=== PATIENT | female | born 1940 | race Caucasian/White ===

== ENCOUNTER 2025-02-12 03:25 | Inpatient (IN) | payer MEDICARE, OTHER, SELFPAY ==
[2025-02-11 18:14] VITALS: BP 123/103
[2025-02-11 18:39] LABS: % Basophils 0.3 % (0-2); % Eosinophils 0.1 % (0-6); % Immature Granulocytes 0.5 % (0-0.5); % Lymphocytes 3.3 % (20.5-51.1); % Monocytes 4.7 % (1.7-9.3); % Neutrophils 91.1 % (42.2-75.2); Absolute Immature Granulocytes 0.1 10^3/uL (0-0.05); Absolute Lymphocytes 0.4 10^3/uL (1.2-3.4); Absolute Monocytes 0.6 10^3/uL (0.1-0.6); Absolute Neutrophils 10.9 10^3/uL (1.4-6.5); Hematocrit 35.1 % (37.0-47.0); Hemoglobin 12.2 g/dL (12.0-16.0); Mean Corp Hgb Conc. 34.8 g/dL (33.0-37.0); Mean Corpuscular Hgb 34.5 pg (27.0-31.0); Mean Corpuscular Volume 99.2 fL (81.0-99.0); Mean Platelet Volume 10.3 fL (7.4-10.4); Nucleated Red Blood Cells % 0 %; Platelet Count 232 10^3/uL (130-400); Red Blood Cell Count 3.54 10^6/uL (4.20-5.40); Red Cell Dist. Width 12.5 % (11.5-14.5); White Blood Cell Count 11.9 10^3/uL (4.8-10.8)
[2025-02-11 18:51] LABS: ALT (SGPT) 19 U/L (0-35); AST (SGOT) 31 U/L (14-36); Alkaline Phosphatase 85 U/L (38-126); Blood Urea Nitrogen 31 mg/dl (7-17); Calcium 9.7 mg/dl (8.4-10.2); Carbon Dioxide 18 mmol/L (22-30); Chloride 101 mmol/L (98-107); Glucose 123 mg/dl (70-99); Potassium 4.5 mmol/L (3.5-5.1); Sodium 130 mmol/L (135-145); Total Bilirubin 0.5 mg/dl (0.2-1.3); Total Protein 6.7 g/dl (6.3-8.2); eGFR 29.57
[2025-02-11 23:00] VITALS: BP 114/68
[2025-02-11 23:01] VITALS: BMI 30.7
--- NOTE | 2025-02-11 23:33 | ED.GENMED ---
History of Present Illness
General
Chief Complaint: Change in Mental Status
Source: patient and family
Exam Limitations: none
Time Seen by Provider: 02/11/25 23:23
History of Present Illness
History of Present Illness:
See MDM
Past History
Past History
ED Past Medical History: Other (cervical/lumbar DDD, DVT/PE)
ED Past Surgical History: Orthopedic
Social History
Tobacco: Non-smoker
Alcohol: None
Personal:
Living: with family
Phy Exam
Physical Exam
Physical Exam:
See MDM
Course
Orders/Labs/Results
Orders:
Orders
02/11/25 18:20
Complete Blood Count/With Diff Urgent
02/11/25 18:21
Comprehensive Metabolic Panel Urgent
02/11/25 23:32
Urinalysis Reflex To Culture Urgent
Date Specimen was Collected: 02/12/25
Time Specimen was Collected: 00:25
0.9% Sodium Chloride 1000 ml [Nss] 1,000 ml IV BOLUS
02/12/25
CT Abd/pel Without Iv Or Oral Urgent
Reason For Exam: R flank pain
02/12/25 00:26
Urine Microscopic Reflex Cult Urgent
Urine Culture Urgent
KITTY Source: U
Specimen Description:
Date Specimen was Collected: 02/12/25
Time Specimen was Collected: 00:25
02/12/25 00:46
EKG [Electrocardiogram (*1)] Stat
Reason for Study: Atrial Fibrillation
EKG- Treatment ONCE
02/12/25 01:01
Adenosine [Adenocard] 6 mg IV NOW STA
02/12/25 01:08
Adenosine [Adenocard] 12 mg .ROUTE .STK-MED ONE
02/12/25 01:12
Adenosine [Adenocard] 12 mg IV NOW STA
Diltiazem HCl [Cardizem] 18 mg IV NOW STA
02/12/25 01:24
EKG [Electrocardiogram (*1)] Stat
Reason for Study: Atrial Fibrillation
02/12/25 01:25
EKG- Treatment ONCE
02/12/25 01:28
CefTRIAXone [Rocephin] 1,000 mg IV NOW STA
Abnormal Lab Results
02/11/25 02/11/25 02/12/25
18:20 18:21 00:26
WBC 11.9 H 10^3/uL
(4.8-10.8)
RBC 3.54 L 10^6/uL
(4.20-5.40)
Hct 35.1 L %
(37.0-47.0)
MCV 99.2 H fL
(81.0-99.0)
MCH 34.5 H pg
(27.0-31.0)
Abs Immat Gran (auto) 0.1 H 10^3/uL
(0-0.05)
Absolute Neuts (auto) 10.9 H 10^3/uL
(1.4-6.5)
Absolute Lymphs (auto) 0.4 L 10^3/uL
(1.2-3.4)
Neutrophils % 91.1 H %
(42.2-75.2)
Lymphocytes % 3.3 L %
(20.5-51.1)
Sodium 130 L mmol/L
(135-145)
Carbon Dioxide 18 L mmol/L
(22-30)
BUN 31 H mg/dl
(7-17)
Creatinine 1.7 H mg/dL
(0.6-1.0)
Glucose 123 H mg/dl
(70-99)
Ur Occult Blood Reflex 4+ A
(Negative)
Leukocyte Esterase Rfl 3+ A
(Negative)
Urine RBC 11-15 A /HPF
(0-2)
Urine WBC (Reflex) 90-100 A /HPF
(0-5)
Urine Bacteria (Reflex) Many A
(Negative)
Urine Albumin (Reflex) 3+ A
(Neg - Trace)
02/11/25 18:20
02/11/25 18:21
Vital Signs
Initial and Last Documented VS:
Initial Vital Signs
Temp Pulse Resp BP Pulse Ox
98.9 F 115 16 123/103 96
02/11/25 18:14 02/11/25 18:14 02/11/25 18:14 02/11/25 18:14 02/11/25 18:14
Last Documented Vital Signs
Temp Pulse Resp BP Pulse Ox
98.8 F 170 17 147/103 97
02/11/25 23:00 02/12/25 01:15 02/11/25 23:00 02/12/25 01:15 02/11/25 23:35
MDM/Problems Addressed
Differential Diagnosis Includes:
Note:
CHIEF COMPLAINT(S)
Urinary tract infection and dehydration.
HISTORY OF PRESENT ILLNESS
The patient is an 84-year-old female with a history of Alzheimers dementia, who presents with a suspected urinary tract infection (UTI) and possible dehydration. According to a family member, the patient recently completed a course of antibiotics
for a UTI but continues to report dysuria. She experienced worsening confusion, difficulty ambulating, and an episode where she was found in a state of disarray, with clothes on backwards and unable to rise from the toilet. There is a concern about
dehydration as she has been sleeping excessively and has had reduced oral intake. Recent blood work revealed an increase in kidney enzymes, with serum creatinine reported to be 1.7 mg/dL, up from a baseline of approximately 1.1-1.2 mg/dL. Although
jaundice was suspected during a recent doctor�s visit, the family reported no current signs of jaundice. The patient has reported abdominal and back pain, attributed to arthritis according to the family. She has no history of abdominal surgery.
ADDITIONAL HISTORY OBTAINED FROM SOURCES OTHER THAN THE PATIENT
According to a family member, the patient has been living independently but requires assistance due to recent increased confusion and weakness. The family noted she was found wearing her clothes backwards and struggled with mobility. They expressed
concern about her risk for falls and subsequent inability to manage daily activities.
SOCIAL DETERMINANTS AFFECTING HEALTH
Per the family, the patient lives independently, with a relative who works two jobs. Due to recent decline, the family has had to assist with mobility and transport to medical appointments. There is a noted risk of fall due to gait instability and
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
REVIEW OF SYSTEMS
- Constitutional: Increased need for sleep, decreased oral intake.
- Gastrointestinal: Abdominal pain.
- Genitourinary: Dysuria.
PHYSICAL EXAM
General: Weak and frail
HEENT: protecting airway. Dry mucous membranes
Neck: appears supple
CV: No evidence of cyanosis
Resp: No accessory muscle use
Abd: Non-distended. Mild right lower quadrant tenderness
Extremities: No deformities. Distal legs neurovascularly intact
Neuro: alert
Psych: Normal affect
Skin: Intact
- Nursing notes reviewed and vital signs reviewed.
- General: Appears slightly dehydrated.
PLAN
- Administer IV fluids to address dehydration.
- Obtain urinalysis to evaluate for a urinary tract infection.
- Conduct a CT scan to assess the abdomen and spine for any underlying issues contributing to the patients abdominal and back pain.
- Consider admission for observation and further management due to potential falls risk and ongoing issues with mobility and confusion.
- Monitor kidney function closely in light of recent blood work suggesting increased creatinine.
DIFFERENTIAL DIAGNOSIS
The Differential Diagnosis includes, in no particular order and is not limited to:
1. Urinary tract infection
2. Dehydration
3. Acute renal impairment
4. Medication side effects
5. Electrolyte imbalance
6. Alzheimers dementia exacerbation
7. Urinary retention
8. Hypotensive episodes
9. Orthostatic hypotension
10. Spinal pathology (e.g., arthritis-related degenerative changes)
Note:
CARE-UPDATE
02/12/25 - :01
The patient experienced an episode of supraventricular tachycardia after going to the bathroom. An EKG confirmed the diagnosis, and the plan is to administer adenosine to attempt to reset the heart rhythm. Despite the tachycardia, the patient
reported feeling asymptomatic, although this is often not the case with elevated heart rates. There is a consideration that missing her regular medications or mild dehydration might have contributed to the episode. The team will monitor her response
to the adenosine. If recurrent episodes occur, further evaluation by a auto dealer may be necessary. The patient also mentioned leg pain upon touch, though its deemed unrelated to the current cardiac issue.
CARE-UPDATE
02/12/25:12
Patient experienced SVT and received adenosine treatment, initially with 6 mg followed by 12 mg, which seemed to break the episode. Uncertainty remains regarding an underlying rhythm of atrial fibrillation. Patient continues to exhibit a
tachyarrhythmia; will proceed with administration of a dose of Cardizem.
CARE-UPDATE
02/12/25 - :29
Administered ceftriaxone for treatment of urinary tract infection. Plan to admit patient for further observation and management due to concerns regarding AFIB. Will place on Cardizem drip
EKG
My independent EKG interpretation is:
- Rhythm: Atrial Fibrillation
- Heart Rate: 127 beats per minute
- [place]: Normal
- Abnormalities: No ST elevation myocardial infarction (no STEMI)
Disposition:
SUMMARY OF ENCOUNTER
The patient, an 84-year-old female with a history of Alzheimers dementia, presented to the emergency department with symptoms suggestive of a urinary tract infection (UTI) and dehydration. The decision was made to administer intravenous antibiotics
due to persistent UTI symptoms despite recent antibiotic therapy. Additionally, during evaluation, the patient was found to have new onset atrial fibrillation, which required further investigation and management.
MEDICATION RECONCILIATION
The patient was started on IV ceftriaxone for the treatment of the suspected urinary tract infection. IV Cardizem was administered to manage the atrial fibrillation.
MEDICAL DECISION MAKING
1. Number & Complexity of Problems:
- Chronic conditions affecting care: Alzheimers dementia.
- Differential diagnoses included urinary tract infection, dehydration, acute renal impairment, electrolyte imbalance, and new onset atrial fibrillation.
2. Data Reviewed:
- Category 1: Labs indicating increased serum creatinine were reviewed. An EKG confirmed atrial fibrillation.
3. Risk: Admission for observation and further management was considered due to the potential complexity and risk associated with the patients atrial fibrillation, dehydration, and ongoing issues with mobility and confusion. Social determinants,
such as the patients independent living situation and risk of falls, were taken into account.
DISPOSITION
The patient will be admitted for further evaluation and management by the hospitalist team.
PATHOLOGIES TO CONSIDER
- Acute coronary syndrome due to new onset atrial fibrillation.
- Sepsis due to persistent UTI symptoms and possible dehydration.
- Stroke secondary to atrial fibrillation.
- Electrolyte imbalance due to recent blood work findings and dehydration concerns.
*Pulse Oximetry
SaO2: 97
Oxygen Mode of Delivery: Room air
Patient hypoxic: no
*Critical Care Note
Total Time (30-74mins, 75-104mins- exclusive of procedures): 33 min
comment:
The high probability of a clinically significant, sudden or life threatening deterioration of the cardiovascular system(s) required my full and direct attention, intervention and personal management. The aggregate critical care time was 33 minutes.
This time is in addition to time spent performing reported procedures but includes the following:
[x] Data Review and interpretation
[x] Patient assessment and monitoring of vital signs
[x] Documentation
[x] Medication orders and management
ED Attending Note
-
Portions of this chart may have been created with voice recognition software.� Occasional wrong word or��sound alike� substitutions may have occurred due to the inherent limitations of voice recognition software.
Discharge Plan
Departure
Patient Disposition: Admit
Date of Disposition: 02/12/25
Time of Disposition: 01:31
Admit to: Telemetry
Presentation/result/management discussed w/ accepting MD/DO: Hospitalist
Discharge Problem:
Acute UTI, Atrial fibrillation, new onset
Prescriptions:
No Action
prednisone 10 MG tablet
10 mg PO .TAPER Qty: 45 0RF
Rx Instructions:
Take 50mg daily x3days, 40mg daily x3days, 30mg daily x3days, 20mg daily x3days, 10mg daily x3days
Referrals:
IRENE MAGALLANES MD [Family Provider, Family Practice]
Interventions
Interventions:
*Risk Screen - Suicide Last Done: 02/11/25 18:17
*General Assessment Last Done: 02/11/25 23:03
*Neglect/Abuse Screening Last Done: 02/11/25 18:17
*ED- Fall Risk Assessment Last Done: 02/11/25 23:02
*ED COVID-19 Vaccine History Last Done: 02/11/25 23:02
ED- Neurological Assessment Last Done: 02/11/25 23:04
Discharge Date and Time
Print Language: MAURITANIAN
[2025-02-12] VITALS (18 sets, daily range): BP systolic 92–150; BP diastolic 47–103; BMI 29.5
[2025-02-12] MEDS: NSS 1000 IV (00:18)
[2025-02-12 00:52] LABS: Urine Albumin 3+ (Neg - Trace); Urine Bilirubin Negative (Negative); Urine Character Cloudy (Clear); Urine Color Yellow; Urine Glucose Negative (Negative); Urine Ketone Negative (Negative); Urine Leukocyte 3+ (Negative); Urine Nitrite Negative (Negative); Urine Occult Blood 4+ (Negative); Urine Urobilinogen Negative (Neg - 1+)
[2025-02-12] MEDS: ADENOCARD 6 MG IV (01:03)
[2025-02-12 01:11] LABS: Urine White Cell 90-100 /HPF (0-5)
[2025-02-12 01:12] LABS: Urine Bacteria Many (Negative); Urine Granular Cast 0-2 /LPF (0)
[2025-02-12] MEDS: ADENOCARD 12 MG IV (01:13)
[2025-02-12] MEDS: CARDIZEM 18 MG IV (01:15)
[2025-02-12] MEDS: CARDIZEM 125 IV (01:43)
[2025-02-12] MEDS: ROCEPHIN 1000 MG IV (01:44)
--- NOTE | 2025-02-12 02:22 | HPS.HSE ---
Family Physician
-
Family Physician: IRENE MAGALLANES MD
Chief Complaint
-
Altered mental status
History of Present Illness
This is a 83-year-old female who has past medical history significant for hypothyroid, hypertension, DVT on warfarin, chronic pain presenting to the emergency department with altered mental status.
Patient was diagnosed with a urinary tract infection 2 weeks ago. She was placed on oral antibiotics. She initially did well but approximately several days after completing the antibiotic she started having symptoms of UTI again. She reports
burning sensation. She denies fevers or chills. She was pending a repeat evaluation by PMD when she became even more altered. Daughter found her sitting on the commode confused and unable to get up and walk. She was found to be tachycardic and
she was brought to the emergency department. They did not notice any falls.
On arrival in the emergency department she was found to be in SVT to the 180s. She was given adenosine and there was no effect. She was started on Cardizem drip and was clearly in atrial fibrillation.
Current blood pressure was 130s over 60s, heart rate in the 120s she is afebrile and oxygen saturation is 98% on room air. She has leukocytosis to 11.9, hemoglobin and platelets were normal. Sodium was 130 the rest of the electrolytes notable for
a bicarb of 18. Creatinine is slightly elevated at 1.7 from a baseline of 1.2. UA is markedly positive. ECG with atrial fibrillation at a rate of 127.
Medical History
Past Medical History
Past Medical History: Reports Dementia, HTN and Hypothyroidism
Additional Past Medical History:
History of DVT
Past Surgical History: Reports Other
Social History
Tobacco: Non-smoker
Alcohol: None
Drug: None
Living: With Family
Employment: Retired
Family History
Family History: Not pertinent
Allergies / Home Medications
Allergies reflects when Allergies were last updated in [facility].
Home Medications with original date entered in [facility]
Allergy/Medication List:
Allergies
Allergy/AdvReac Type Severity Reaction Status Date / Time
acetaminophen (From Percocet) Allergy Unknown Verified 03/19/16 13:38
amoxicillin Allergy Unknown Verified 03/19/16 13:38
cephalexin Allergy Unknown Verified 03/19/16 13:38
codeine phosphate (From Allergy Unknown Verified 03/19/16 13:38
Tylenol-Codeine #3)
hydrocodone bitartrate (From Allergy Unknown Verified 03/19/16 13:38
Vicodin)
latex Allergy Unknown Verified 03/19/16 13:38
morphine Allergy Unknown Verified 03/19/16 13:38
nitrofurantoin Allergy Unknown Verified 03/19/16 13:38
oxycodone HCl (From Percocet) Allergy Unknown Verified 03/19/16 13:38
sulfamethoxazole (From Allergy Unknown Verified 03/19/16 13:38
Bactrim)
tramadol Allergy Unknown Verified 03/19/16 13:38
trimethoprim (From Bactrim) Allergy Unknown Verified 03/19/16 13:38
Home Medications
prednisone 10 mg tablet 10 mg PO .TAPER #45 tabs 03/19/16
Review of Systems
-
History Source: Patient and Family
Constitutional: Reports No Symptoms
EENT: Reports No Symptoms
Respiratory: Reports No Symptoms
Cardiac: Reports No Symptoms
Abdomen/GI: Reports No Symptoms
: Reports Dysuria
Musculoskeletal: Reports No Symptoms
Skin: Reports No Symptoms
Neurological: Reports Weakness
Endocrine: Reports No Symptoms
Hematologic/Lymphatic: Reports No Symptoms
Psych: Reports No Symptoms
Physical Exam
Vital Signs
Vital Signs
Temp Pulse Resp BP Pulse Ox
98.8 F 127 15 147/103 100
02/11/25 23:00 02/12/25 01:45 02/12/25 01:45 02/12/25 01:16 02/12/25 01:45
Physical Exam
General: Well Developed and Well Nourished
HEENT: NormoCephalic, Moist mucous membranes and Atraumatic
Respiratory: Clear
Cardiac: S1/S2, Irregular Rhythm and Tachycardia; No Murmur or Rub
GI: Soft, Non Tender, Non Distended and Normal Bowel Sounds; No Organomegaly
Rectal: Deferred by Provider
Musculoskeletal: No Clubbing, No Cyanosis and No Edema
Skin: No Rash
Neuro: Alert and Nonfocal/grossly intact; No Facial Droop or Tremors
Laboratory Results
-
02/11/25 18:20
02/11/25 18:21
Laboratory Results
Total Bilirubin 0.5 mg/dl (0.2-1.3) 02/11/25 18:21
AST 31 U/L (14-36) 02/11/25 18:21
ALT 19 U/L (0-35) 02/11/25 18:21
Alkaline Phosphatase 85 U/L (38-126) 02/11/25 18:21
Data Reviewed
-
Medical Tests (Nuc Med, Echo, EKG etc): Image Personally Visualized and interpreted
Lab Data: Labs Reviewed by me
Old Records: Reviewed
Impression/Plan
-
IMPRESSION:
83-year-old female presenting with weakness, altered mental status and uncontrolled atrial fibrillation in the setting of persistent urinary tract infection. She is afebrile and remains hemodynamically stable. She has mild leukocytosis. UA is
still markedly positive despite treatment with oral antibiotics in the outpatient. She has continued to have dysuria just prior to coming to the ED. No history of kidney stones or urinary retention.
PLAN:
Atrial fibrillation -new onset atrial fibrillation with rapid ventricular response
- Admit to IMU
- Patient on Cardizem drip, continue drip for now
- Continue patient's metoprolol 100 mg p.o. daily
- Hold enalapril for now
- Already on anticoagulation with Coumadin, unknown compliance, checking INR, consider alternate mode of anticoagulation but will continue Coumadin for now
- echo, bnp in am
- cardiology consult
Urinary tract infection -recurrence of failure for oral antibiotics,
- Urine culture sent
- IV ceftriaxone
-CTAP to rule out stone or urinary retention
- Status post 1 L normal saline, monitor for now without additional fluid
Altered mental status -suspect secondary to UTI and possible uncontrolled A-fib
- Treatment of those as above
LOY -LOY on CKD, suspect secondary to infection, rule out hypovolemia.
- Holding up
- Status post 1 L normal saline, continue gentle hydration for now
- Monitor for retention on CT scan
- Monitor ins and outs
- Avoid nephrotoxin
Continue levothyroxine, check TSH
DVT prophylaxis, on warfarin
CODE STATUS�full code
[2025-02-12] MEDS: SYNTHROID 75 MCG PO (05:04)
[2025-02-12] MEDS: LR 1000 IV (05:04)
[2025-02-12 05:09] LABS: Hematocrit 37.8 % (37.0-47.0); Hemoglobin 13.4 g/dL (12.0-16.0); Mean Corp Hgb Conc. 35.4 g/dL (33.0-37.0); Mean Corpuscular Hgb 35.5 pg (27.0-31.0); Mean Corpuscular Volume 100.3 fL (81.0-99.0); Mean Platelet Volume 10.6 fL (7.4-10.4); Platelet Count 199 10^3/uL (130-400); Red Blood Cell Count 3.77 10^6/uL (4.20-5.40); Red Cell Dist. Width 12.6 % (11.5-14.5); White Blood Cell Count 10.8 10^3/uL (4.8-10.8)
--- NOTE | 2025-02-12 05:19 | PTCARENOTE ---
Received pt from ED at 0420. Pt aaox1, forgetful/confused. Daughter at bedside. Cardizem gtt increased to 10mg/hr, running through R AC. Afib on monitor, HR 100-110. VSS. Temp slightly elevated at 99.8. LR @75ml/hr running through R forearm IV. Call
diaz and belongings within reach. Care ongoing.
[2025-02-12 05:23] LABS: Blood Urea Nitrogen 35 mg/dl (7-17); Calcium 9.5 mg/dl (8.4-10.2); Carbon Dioxide 18 mmol/L (22-30); Chloride 106 mmol/L (98-107); Estimated Creatinine Clearance 25 ml/min; Glucose 100 mg/dl (70-99); HDL Cholesterol 62 mg/dl; LDL Cholesterol, Calculated 109 mg/dl; Magnesium 1.9 mg/dl (1.6-2.3); Potassium 4.6 mmol/L (3.5-5.1); Sodium 135 mmol/L (135-145); Total Cholesterol 198 mg/dl (50-199); Triglyceride 137 mg/dl (10-149); Very Low Density Lipoprotein 27 mg/dl (0-30); eGFR 34.36
[2025-02-12 05:28] LABS: INR 1.01; PT 13.8 Sec (11.4-14.6)
[2025-02-12 05:45] LABS: NT-proBNP 4790 pg/ml; Troponin I 0.056 ng/ml
[2025-02-12 06:10] LABS: TSH Reflex To Free T4 0.57 uIU/ml (0.47-4.68)
[2025-02-12] MEDS: TYLENOL 650 MG PO (08:07)
[2025-02-12] MEDS: PROTONIX 20 MG PO (08:07)
[2025-02-12] MEDS: CYMBALTA DELAYED RELEASE 30 MG PO (08:07)
[2025-02-12] MEDS: TOPROL XL 100 MG PO (08:07)
--- NOTE | 2025-02-12 08:20 | CON.CAR ---
Addendum entered and electronically signed by ROSE MARIE Asencio 02/13/25 15:24:
Med list below in my consult was incorrect as med rec not yet done:
-prescribed cardiac meds prior to admit include: metoprolol XL 100 mg PO daily, enalapril 10 mg PO daily, and warfarin dosing as prescribed.
Addendum entered and electronically signed by Edward Mays MD 02/12/25 10:01:
84 yo female with PMH of DVT on warfarin, HTN, CKD3b medical noncompliance. Admitted with UTI, and altered mental status. We are consulted for A fib with RVR,new. She denies palps. Exam with irregular rhythm, no murmurs, no edema. Cr 1.5. Tele: A
fib 90s-100s.
New A fib with RVR. In setting of UTI. Will focus on rate control, and will consider DCCV after UTI treated as outpatient. Continue diltiazem drip, which requires monitoring on tele. Add back Toprol XL 100mg daily.
CHADS2-VASC = 4. Warfarin listed on home meds, but INR 1.0. Family thinks not taking. Given Cr 1.5 with some variation around this baseline, and also med compliance issues, xarelto 15mg daily will likely be best OAC.
Original Note:
Consultation
Consultation Request
Date/Time Consultation Requested: 02/12/25417
Date/Time Consultation Performed: 02/12/25820
Requesting Provider: Dr. Becerra
Performing Provider: Cielo TROTTER for Dr. Mays
Reason for Consultation: AFIB
Medical History
-
Chief Complaint: altered MS
History of Present Illness:
84 y/o female (saw Dr. Rawls remotely for cardiac care) with hypothyroidism, hypertension, hx PE on warfarin, SVT, possible dementia per chart, and CKD who is here for altered MS. She was recently treated for a UTI as OP. Symptoms recurred after
abx course completed. She lives at home with a daughter, but daughter goes to work so she is alone at times during the day and sleeps a lot and does not eat or drink much. Meds are put out for patient, but family suspects she has not been taking
them. She is here because yesterday while she was on the toilet her daughter went to check on her and she was confused and weak. She went to her PCP, who recommended ER. She is being treated with IV abx for UTI. She also received IV fluids for
suspected dehydration. Her daughter thinks she looks better today, and patient in good spirits, but still somewhat confused. We are consulted since SVT was noted in ER and adenosine was given. However, AFIB was noted and she is on diltiazem drip.
Rates are controlled. She is and was not symptomatic with this. She was in SR on arrival on telemetry.
Past Medical History
Past Medical History: HTN, Hypercholesterolemia and Hypothyroidism
Social History
Tobacco: Non-Smoker
Living: With Family
Family History
Family History: Reviewed & Not Pertinent
Allergies / Home Medications
Allergy/AdvReac Type Severity Reaction Status Date / Time
acetaminophen (From Percocet) Allergy Unknown Verified 03/19/16 13:38
amoxicillin Allergy Unknown Verified 03/19/16 13:38
cephalexin Allergy Unknown Verified 03/19/16 13:38
codeine phosphate (From Allergy Unknown Verified 03/19/16 13:38
Tylenol-Codeine #3)
hydrocodone bitartrate (From Allergy Unknown Verified 03/19/16 13:38
Vicodin)
latex Allergy Unknown Verified 03/19/16 13:38
morphine Allergy Unknown Verified 03/19/16 13:38
nitrofurantoin Allergy Unknown Verified 03/19/16 13:38
oxycodone HCl (From Percocet) Allergy Unknown Verified 03/19/16 13:38
sulfamethoxazole (From Allergy Unknown Verified 03/19/16 13:38
Bactrim)
tramadol Allergy Unknown Verified 03/19/16 13:38
trimethoprim (From Bactrim) Allergy Unknown Verified 03/19/16 13:38
�Medication �Instructions �Recorded �Confirmed �Type
prednisone 10 mg tablet 10 mg PO .TAPER #45 tabs 03/19/16 Rx
Review of Systems
-
History Source: Patient
All other systems: Negative unless noted
Constitutional: Other (weakness)
: Dysuria
Neurological: Other (confusion)
Physical Exam
Vital Signs
Temp Pulse Resp BP Pulse Ox
99.6 F 104 24 123/77 96
02/12/25 07:08 02/12/25 06:00 02/12/25 06:00 02/12/25 06:00 02/12/25 05:26
Lab Results
02/12/25 04:57
02/12/25 04:57
Troponin I 0.056 ng/ml H* 02/12/25 04:57
Jkw-I-Mmzcbeshhhi Pept 4790 pg/ml 02/12/25 04:57
Physical Exam
General: Well Developed, Well Nourished and No Apparent Distress
HEENT: Normocephalic and Anicteric
Respiratory: Clear and Non Labored Respirations
Cardiac: Irregular Rhythm
Skin: Warm and Dry
Neuro: Awake, Alert and Other (some confusion and forgetfulness)
Psych: Calm
Impression / Plan
-
UTI:
-on IV abx
-management per primary
AFIB with RVR- new diagnosis:
-not symptomatic
-continue IV diltiazem for now, which requires intensive monitoring- wean as able now that she is back on metoprolol 100 mg daily (there has been some med non-compliance at home)
-she is prescribed warfarin as OP for hx PE, but has not been taking it consistently. INR is 1.01. DOAC will be safer/better choice for patient with this in mind. Will have CM ty meds. Would consider Xarelto here, since it is once daily
(compliance) and since her creatinine is around 1.5 (sometimes above or below it appears), so dosing may not be as clear for Eliquis.
-echo today
-TSH WNL
SVT:
-known hx
-continue metoprolol
Weakness:
-UTI being treated, but likely needs PT/OT/CM consults- defer to primary team
Hx PE:
-previously prescribed warfarin- discussion on OAC as above
-no leg pain now, but was reported this admit- consider u/s, but defer to primary
HTN:
-monitor with med adjustment
Abnormal renal function:
-patient with CKD, but I am not sure of recent baseline
-follow renal function
-improved with fluids
Abnormal troponin:
-suspect acute, non-ischemic myocardial injury with likely LOY, as well as tachycardia
-obtaining echo
Data Reviewed
-
EKG: Tracing Personally Visualized and interpreted (AFIB with RVR [address] Scan: Report Reviewed by me (There is urinary bladder wall thickening with surrounding stranding which likely represents cystitis. Additionally there is asymmetric right perinephric stranding which may represent ascending infection. Recommend
correlation with urinalysis.)
Medical Tests (Nuc Med, Echo etc): Other (echo ordered)
Labs: Labs Reviewed by me
--- NOTE | 2025-02-12 12:05 | W.PN.HOSP.TC ---
Today's Communication/Plan
-
See plan
Assessment / Plan
Assessment / Plan
Impression:
Urinary tract infection
Atrial fibrillation with rapid ventricular response, new diagnosis
Known history of SVT
Abnormal cardiac markers
� Troponin elevation likely secondary to nonischemic myocardial injury in the settings of rapid A-fib
� Elevated pro CHF BNP
Acute kidney injury.
Hypovolemic hyponatremia
Toxic metabolic encephalopathy secondary to above.
Other conditions:
Pulmonary embolism
Anticoagulation with Coumadin
Hypertension
Hypothyroidism by history.
Plan
Urinary tract infection.
No evidence of sepsis. Hemodynamically stable, afebrile, although with altered mental status upon presentation which is likely multifactorial.
Noted mild leukocytosis
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
CT scan with no evidence of urinary tract obstruction, findings consistent with cystitis and right perinephric stranding likely ascending infection.
Continue ceftriaxone
Follow blood cultures
Follow urine cultures
Acute kidney injury.
Hypovolemic hyponatremia
Improving with IV hydration.
Atrial fibrillation with rapid ventricular response. New diagnosis.
Has known history of SVT.
Continue Cardizem drip
Reinstate Toprol XL.
CV score 4. Had been on anticoagulation with Coumadin for prior history of PE, although presents with subtherapeutic INR.
Case management request for NOAC coverage and pricing
Abnormal cardiac markers including troponin and CHF BNP.
Echo pending
Chest pain-free
Trend troponin
Altered mental status
Currently improved and back to baseline
Suspect toxic metabolic encephalopathy secondary to acute kidney injury, ongoing UTI.
Exam with no focal neurologic findings.
Check CT scan of the head
Monitor closely
Hypothyroidism by history
Confirm outpatient dosing if any Levothyroid replacement but
TSH within normal limits
Prior history of PE.
Currently on Coumadin with subtherapeutic INR.
Consideration switching to factor Xa inhibitor
Update lower extremity Doppler
Physical therapy assessment and discharge planning
Full code
Anticipated Discharge: > 48 hours
Subjective/Interval History
-
Date of Service: February 12, 2025
Objective Data
-
Labs:
Laboratory Results
02/12/25
04:57
WBC 10.8
Hgb 13.4
Hct 37.8
Plt Count 199
PT 13.8
INR 1.01
Sodium 135
Potassium 4.6
Chloride 106
Carbon Dioxide 18 L
BUN 35 H
Creatinine 1.5 H
Glucose 100 H
Calcium 9.5
Vital Signs:
Vital Signs
Temp Pulse Resp BP Pulse Ox
99.6 F 104 24 123/77 96
02/12/25 07:08 02/12/25 06:00 02/12/25 06:00 02/12/25 06:00 02/12/25 05:26
I&O
02/11/25 02/12/25 02/13/25
06:59 06:59 06:59
Intake Total 1000 / 1000
Balance 1000 / 1000
Physical Exam
-
General: Well Developed and No Apparent Distress
HEENT: Normocephalic, Atraumatic and Moist Mucous Membranes
Respiratory: Clear to Auscultation
Cardiac: Regular Rhythm and S1/S2; Negative Murmur, Rub or Gallop
GI: Soft, Nontender, Nondistended and Normal Bowel Sounds; Negative Organomegaly
Rectal: Deferred by Provider
Musculoskeletal: No Clubbing, No Cyanosis and No Edema
Skin: Negative Rash
Neuro: Nonfocal/Grossly Intact
[2025-02-12 14:49] LABS: Troponin I 0.065 ng/ml
--- NOTE | 2025-02-12 15:03 | PTCARENOTE ---
Addendum entered by Vicki Cedeño RN 02/12/25 15:06:
With bilateral hearing aides. VS stable,afebrile.
Addendum entered by Vicki Cedeño RN 02/12/25 15:03:
Patient out of bed to chair and bathroom. Supervision assistance x1 and rolling walker. Patient alert and oriented but has some trouble with word recall and short term memory. Using call diaz appropriately. Hard of hearing with ai
Original Note:
Patient out of bed to commode
--- NOTE | 2025-02-12 16:31 | CM ---
Patient with Dx UTI, new Afib w RVR. Room air. Receiving IVF, IV Abx. Per nurse confused, forgetful. PT/OT Evals pending.
Met with patient and daughter Katja;
the patient resides with her daughter Gloria in a 2 story house with 2 CHRIS & first floor setup.
The patient has been confused/forgetful at home and is left alone during the day while Gloria is at work.
She washes herself at the bathroom sink and ambulates with a shuffling gait within the home by 'wall surfing'.
Patient refuse to use RW or cane, & she last fell 2 years ago.
The patient is not supervised for medications and doesn't take her meds consistently.
DME - [facility], [facility]
VN - can't remember agency
SNF - [facility] in [place] - can't remember name
PCP - Christie Galvan
Pharmacy - [facility] in [facility]
CM Consult: Saritha and Xarelto
Checked through Ambulatory Orders- $47/month - cost for each
Much discussion with Katja about cost, initially saying her sister Gloria may not approve.
CM attempted to reach Gloria 3x- not answering phone, and she is out of town gol[place]ame today per Katja.
Katja finally agreed to cost and accepted Eliquis Free Month card.
Info relayed to Dr Monteiro & Cielo Davenport.
Plan follow up after seen by PT/OT.
--- NOTE | 2025-02-12 17:13 | W.PN.UPDATE ---
Addendum entered and electronically signed by ROSE MARIE Asencio 02/12/25 17:26:
Discussed with daughter who is agreeable to Xarelto. Reviewed with nursing. CM to check pricing on this tomorrow.
Original Note:
Update Note
Progress Note Update
CM still working out pricing of Xarelto- I will start Xarelto 15 mg PO QPM for now and stop warfarin, as this is a better choice for patient- reassess tomorrow with CM, patient, family.
[2025-02-12] MEDS: XARELTO 15 MG PO (17:46)
--- NOTE | 2025-02-12 18:10 | PTCARENOTE ---
Jacobo matthews d/c this afternoon. Patient remains in afib with HR 70-90's. Xaralto started this evening. Patient pleasantly confused. Oriented to self but can't state the year she was born or her age. INC of urine. Patient had a temperature of
100.5 this AM and tylenol given. Afebrile the rest of the day.
--- NOTE | 2025-02-12 23:36 | PTCARENOTE ---
Pt noted to be in NSR at beginning of shift. EKG done to confirm.
[2025-02-13] VITALS (15 sets, daily range): BP systolic 107–152; BP diastolic 54–86; PULSE 91–95; O2SAT 100; BMI 27.4
[2025-02-13] MEDS: ROCEPHIN 1000 MG IV (01:05)
[2025-02-13 04:35] LABS: Troponin I 0.031 ng/ml
[2025-02-13 04:36] LABS: Blood Urea Nitrogen 29 mg/dl (7-17); Calcium 9.3 mg/dl (8.4-10.2); Carbon Dioxide 18 mmol/L (22-30); Chloride 111 mmol/L (98-107); Estimated Creatinine Clearance 28 ml/min; Glucose 100 mg/dl (70-99); Potassium 3.9 mmol/L (3.5-5.1); Sodium 136 mmol/L (135-145); eGFR 37.33
[2025-02-13] MEDS: SYNTHROID 75 MCG PO (05:24)
--- NOTE | 2025-02-13 09:20 | W.PN.CD ---
Today's Communication / Plan
-
Patient is currently in sinus rhythm
Continue with current medical therapy for atrial fibrillation including Xarelto 15 mg a day and metoprolol.
Echocardiogram shows normal left ventricular function
No additional recommendations.
Call if additional assistance required
Impression / Plan
-
UTI:
-on IV abx
-management per primary
AFIB with RVR- new diagnosis:
-not symptomatic
- Now on Xarelto 15 mg a day
- Currently in sinus rhythm
- continue metoprolol
SVT:
-known hx
-continue metoprolol
Hx PE:
- Warfarin discontinued now on Xarelto
HTN:
-monitor with med adjustment
Abnormal renal function:
-patient with CKD, but I am not sure of recent baseline
-follow renal function
-improved with fluids
Abnormal troponin:
- acute, non-ischemic myocardial injury with likely LOY, as well as tachycardia
- Echo 02/12/2025 normal left ventricular function 60 to 65% ejection fraction aortic sclerosis without stenosis. Mild to moderate TR. Normal PA pressure
Physical Exam
Vital Signs/Labs
Vital Signs
Temp Pulse Resp BP Pulse Ox
97.1 F 105 21 152/77 96
02/13/25 07:55 02/13/25 04:00 02/13/25 04:00 02/13/25 04:00 02/13/25 04:00
02/12/25 02/13/25 02/14/25
06:59 06:59 06:59
Actual Weight 68.5 kg 68 kg
02/12/25 04:57
02/13/25 04:00
PT 13.8 Sec (11.4-14.6) 02/12/25 04:57
INR 1.01 02/12/25 04:57
Magnesium 1.9 mg/dl (1.6-2.3) 02/12/25 04:57
Triglycerides 137 mg/dl (10-149) 02/12/25 04:57
LDL Cholesterol, Calc 109 mg/dl 02/12/25 04:57
VLDL Cholesterol, Calc 27 mg/dl (0-30) 02/12/25 04:57
HDL Cholesterol 62 mg/dl 02/12/25 04:57
02/12/25
04:57
Hhn-M-Ljhvigkkwdv Pept 4790
LAB Results
02/12/25 02/12/25 02/13/25
04:57 14:11 04:00
Troponin I 0.056 H* 0.065 H* 0.031
Physical Exam
Constitutional: No acute distress
Cardiovascular: Rhythm & rate is regular
Respiratory: Lungs clear to auscul. and Wheeze Absent
GI: Soft
Neuro/Psych: Alert
Data Reviewed
-
Date of Service: February 13, 2025
Medical Decision Making: Reviewed Test Results
Echo: Report Reviewed by me
Medical Tests (PFT, Pathology etc): Report Reviewed by me
Labs: Labs Reviewed by me
[2025-02-13] MEDS: TOPROL XL 100 MG PO (09:43)
[2025-02-13] MEDS: PROTONIX 20 MG PO (09:43)
[2025-02-13] MEDS: CYMBALTA DELAYED RELEASE 30 MG PO (09:43)
--- NOTE | 2025-02-13 11:20 | W.PN.HOSP.TC ---
Today's Communication/Plan
-
Given altered mental status upon presentation, abnormal CT scan findings suggestive subacute left basal ganglia infarction and will proceed with additional imaging with MRI.
Has been on anticoagulation, currently transition to Xarelto.
Physical therapy assessment
IV ceftriaxone pending final urine cultures.
PT assessment suggesting need for rehab placement and close supervision.
Assessment / Plan
Assessment / Plan
Impression:
Urinary tract infection
Atrial fibrillation with rapid ventricular response, new diagnosis
Known history of SVT
Abnormal cardiac markers
� Troponin elevation likely secondary to nonischemic myocardial injury in the settings of rapid A-fib
� Elevated pro CHF BNP
Acute kidney injury.
Hypovolemic hyponatremia
Toxic metabolic encephalopathy secondary to above.
Other conditions:
Pulmonary embolism
Anticoagulation with Coumadin
CKD stage IIIa
Hypertension
Hypothyroidism by history.
Plan
Urinary tract infection.
No evidence of sepsis. Hemodynamically stable, afebrile, although with altered mental status upon presentation which is likely multifactorial.
Noted mild leukocytosis
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
CT scan with no evidence of urinary tract obstruction, findings consistent with cystitis and right perinephric stranding likely ascending infection.
Urine culture with E. coli pending sensitivity
Continue ceftriaxone
Acute kidney injury.
Suspect CKD stage IIIa with baseline creatinine 1.2�1.4
Hypovolemic hyponatremia
Improving with IV hydration. Creatinine 1.7�1.4
Atrial fibrillation with rapid ventricular response. New diagnosis.
Has known history of SVT.
Back to normal sinus rhythm
Off IV Cardizem
Reinstate Toprol XL.
CV score 4. Had been on anticoagulation with Coumadin for prior history of PE, although presents with subtherapeutic INR.
Transitioned of Coumadin to Xarelto
Abnormal cardiac markers including troponin and CHF BNP.
Echo pending
Chest pain-free
Echocardiogram with normal biventricular function and no evidence of regional wall motion abnormality.
Altered mental status
Suspect underlying dementia
CT scan of the head with 7 mm hypodensity within the anterior left basal ganglia which may represent subacute infarction.
Will order additional imaging with MRI
Currently improved and back to baseline
Suspect toxic metabolic encephalopathy secondary to acute kidney injury, ongoing UTI.
Exam with no focal neurologic findings.
Hypothyroidism by history
Confirm outpatient dosing if any Levothyroid replacement but
TSH within normal limits
Macrocytosis
Check B12 level
Prior history of PE.
Currently on Coumadin with subtherapeutic INR.
Lower extremity Doppler negative for DVT
Transitioned off Coumadin to Xarelto
Physical therapy assessment and discharge planning
Full code
Anticipated Discharge: 24 - 48 hours
Subjective/Interval History
-
Date of Service: February 13, 2025
Objective Data
-
Labs:
Laboratory Results
02/13/25
04:00
Sodium 136
Potassium 3.9
Chloride 111 H
Carbon Dioxide 18 L
BUN 29 H
Creatinine 1.4 H
Glucose 100 H
Calcium 9.3
Vital Signs:
Vital Signs
Temp Pulse Resp BP Pulse Ox
97.1 F 91 16 121/67 96
02/13/25 07:55 02/13/25 10:47 02/13/25 10:47 02/13/25 10:47 02/13/25 09:36
I&O
02/12/25 02/13/25 02/14/25
06:59 06:59 06:59
Intake Total 999 / 9995 / 173
Balance 999 / 999 1734 / 173
Physical Exam
-
General: Well Developed and No Apparent Distress
HEENT: Normocephalic, Atraumatic and Moist Mucous Membranes
Respiratory: Clear to Auscultation
Cardiac: Regular Rhythm and S1/S2; Negative Murmur, Rub or Gallop
GI: Soft, Nontender, Nondistended and Normal Bowel Sounds; Negative Organomegaly
Rectal: Deferred by Provider
Musculoskeletal: No Clubbing, No Cyanosis and No Edema
Skin: Negative Rash
Neuro: Nonfocal/Grossly Intact
[2025-02-13 15:00] LABS: Vitamin B12 > 1000 pg/ml (239-931)
--- NOTE | 2025-02-13 15:16 | CM ---
Patient with Dx UTI, new Afib w RVR, CT Head yesterday: possible subacute infarction. MRI Brain pending. Room air. Receiving IVF, IV Abx. Per nurse; forgetful. PT/OT recommends skilled rehab.
Spoke with patient's daughter Katja; discussed patient's current mobility as per PT/OT. Daughter agrees with short term SNF for rehab and would like her mother to go to [facility] again. She says her sister JAXON Castro, who is out of town, would
agree also.
Spoke with Iesha Buck; provided info re; clinical status, and referral placed.
Plan follow up with [facility] for acceptance.
--- NOTE | 2025-02-13 16:39 | PTCARENOTE ---
OOB x1-2 hr returned to bed d/t back pain. Refused med intervention. AOx2 forgetful, alarms engaged. SR 80s on tele BP 107/60. 95% on RAIR. Awaiting MRI. Daughter phani this RN aware that she had TIA in the past (15 years) ago - unconfirmed.
Awaiting MRI.
[2025-02-13] MEDS: XARELTO 15 MG PO (17:39)
[2025-02-13] MEDS: TYLENOL 650 MG PO (19:40)
[2025-02-14] VITALS (10 sets, daily range): BP systolic 102–145; BP diastolic 51–87; BMI 27.8
--- NOTE | 2025-02-14 00:22 | PTCARENOTE ---
pt oriented to self, pleasantly confused. bed alarm in use. daughter visited earlier in the evening with the pt. nsr on monitor. satting 98% on RA. call light in reach. assessment as documented.
[2025-02-14] MEDS: ROCEPHIN 1000 MG IV ×2 (02:50→23:27)
[2025-02-14] MEDS: STERILE WATER FOR INJECTION 10 ML IV ×3 (02:50→23:27)
[2025-02-14 05:44] LABS: Blood Urea Nitrogen 27 mg/dl (7-17); Calcium 9.9 mg/dl (8.4-10.2); Carbon Dioxide 24 mmol/L (22-30); Chloride 112 mmol/L (98-107); Estimated Creatinine Clearance 28 ml/min; Glucose 103 mg/dl (70-99); Potassium 4.1 mmol/L (3.5-5.1); Sodium 140 mmol/L (135-145); eGFR 37.33
[2025-02-14] MEDS: SYNTHROID 75 MCG PO (05:50)
[2025-02-14] MEDS: CYMBALTA DELAYED RELEASE 30 MG PO (08:55)
[2025-02-14] MEDS: TOPROL XL 100 MG PO (08:55)
[2025-02-14] MEDS: PROTONIX 20 MG PO (08:55)
--- NOTE | 2025-02-14 10:08 | CM ---
Patient with Dx UTI, new Afib w RVR. MRI Brain today. Room air. Receiving IV Abx. Per nurse; confused, forgetful. PT/OT; requires assist of 2, recommend skilled rehab.
Spoke with Cielo, [facility]; they are able to accept the patient tomorrow, and 1pm ambulance transport time is okay. CM can contact weekend Nursing Animal Husbandman by calling the [employer] @[phone]. The [phone], fax [phone].
Spoke with patient's daughter Katja; she agrees with discharge tomorrow to [facility] by ambulance at 1pm. Daughter will be here later today to meet with CM to sign IMM.
Ambulance forms given to Natalio, [employer] to arrange ambulance.
Plan [facility] tomorrow 1pm by ambulance.
--- NOTE | 2025-02-14 12:34 | W.PN.HOSP.TC ---
Today's Communication/Plan
-
Transition to oral antibiotics upon discharge in a.m.
Continue supportive care
Physical therapy
Plan is to discharge to group home facility rehab
Assessment / Plan
Assessment / Plan
Impression:
Urinary tract infection
Atrial fibrillation with rapid ventricular response, new diagnosis
Known history of SVT
Abnormal cardiac markers
� Troponin elevation likely secondary to nonischemic myocardial injury in the settings of rapid A-fib
� Elevated pro CHF BNP
Acute kidney injury.
Hypovolemic hyponatremia
Toxic metabolic encephalopathy secondary to above.
Other conditions:
Pulmonary embolism
Anticoagulation with Coumadin
CKD stage IIIa
Hypertension
Hypothyroidism by history.
Plan
Urinary tract infection.
No evidence of sepsis. Hemodynamically stable, afebrile, although with altered mental status upon presentation which is likely multifactorial.
Noted mild leukocytosis
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
CT scan with no evidence of urinary tract obstruction, findings consistent with cystitis and right perinephric stranding likely ascending infection.
Urine culture with E. coli sensitive to cephalosporins. Plan is to transition to cephalexin 500 p.o. twice daily upon discharge to complete total of 5 days of therapy
Continue ceftriaxone while in the hospital
Acute kidney injury.
Suspect CKD stage IIIa with baseline creatinine 1.2�1.4
Hypovolemic hyponatremia
Improving with IV hydration. Creatinine 1.7�1.4
Atrial fibrillation with rapid ventricular response. New diagnosis.
Has known history of SVT.
Back to normal sinus rhythm
Off IV Cardizem
Reinstate Toprol XL.
CV score 4. Had been on anticoagulation with Coumadin for prior history of PE, although presents with subtherapeutic INR.
Transitioned of Coumadin to Xarelto
Abnormal cardiac markers including troponin and CHF BNP.
Echo pending
Chest pain-free
Echocardiogram with normal biventricular function and no evidence of regional wall motion abnormality.
Altered mental status
Suspect underlying dementia
CT scan of the head with 7 mm hypodensity within the anterior left basal ganglia which may represent subacute infarction.
MRI of the brain No acute intracranial abnormality noted.
Mild atrophy with sequelae of moderate small vessel ischemic disease. The abnormality seen on prior CT correlates with a prior small infarction in the anterior left basal ganglia.
Currently improved and back to baseline
Suspect toxic metabolic encephalopathy secondary to acute kidney injury, ongoing UTI.
Exam remains with no focal neurologic findings.
Hypothyroidism by history
Confirm outpatient dosing if any Levothyroid replacement
TSH within normal limits
Macrocytosis
B12 within normal limit
Prior history of PE.
Currently on Coumadin with subtherapeutic INR.
Lower extremity Doppler negative for DVT
Transitioned off Coumadin to Xarelto
Physical therapy assessment and discharge planning
Full code
Anticipated Discharge: Within 24 hours
Subjective/Interval History
-
Date of Service: February 14, 2025
Objective Data
-
Labs:
Laboratory Results
02/14/25
05:12
Sodium 140
Potassium 4.1
Chloride 112 H
Carbon Dioxide 24
BUN 27 H
Creatinine 1.4 H
Glucose 103 H
Calcium 9.9
Vital Signs:
Vital Signs
Temp Pulse Resp BP Pulse Ox
97.7 F 89 23 141/78 98
02/14/25 11:13 02/14/25 10:00 02/14/25 10:00 02/14/25 08:46 02/14/25 00:14
I&O
02/13/25 02/14/25 02/15/25
06:59 06:59 06:59
Intake Total 1735 / 1735
Balance 1735 / 1735
Physical Exam
-
General: Well Developed and No Apparent Distress
HEENT: Normocephalic, Atraumatic and Moist Mucous Membranes
Respiratory: Clear to Auscultation
Cardiac: Regular Rhythm and S1/S2; Negative Murmur, Rub or Gallop
GI: Soft, Nontender, Nondistended and Normal Bowel Sounds; Negative Organomegaly
Rectal: Deferred by Provider
Musculoskeletal: No Clubbing, No Cyanosis and No Edema
Skin: Negative Rash
Neuro: Nonfocal/Grossly Intact
[2025-02-14] MEDS: XARELTO 15 MG PO (17:35)
[2025-02-15] VITALS (7 sets, daily range): BP systolic 115–141; BP diastolic 62–99
--- NOTE | 2025-02-15 01:04 | PTCARENOTE ---
Pt oriented to self and place, disoriented to time. Pt pleasant, cooperative, but forgetful. IV abx given per OCT. Pt denies complaints at this time. Call diaz within reach. Bed alarm in place for pt safety. Care ongoing.
[2025-02-15] MEDS: SYNTHROID 75 MCG PO (05:02)
[2025-02-15] MEDS: TOPROL XL 100 MG PO (08:34)
[2025-02-15] MEDS: PROTONIX 20 MG PO (08:34)
[2025-02-15] MEDS: CYMBALTA DELAYED RELEASE 30 MG PO (08:34)
--- NOTE | 2025-02-15 13:31 | PTCARENOTE ---
assumed care of pt after morning report and assessment charted. Pt is alert and oriented x 2 but definitely unsure and confused at times. She can tell me her needs, but does not tell me when she is incontinent. Complete care and hygiene provided. Pt
able to feed self breakfast. NSR on monitor. Lungs clear throughout, 96% on room air. Daughter Katja at bedside and aware of plan of discharge to [facility]. Report called to facility. Transport arrived and pt discharged
--- NOTE | 2025-02-16 13:36 | W.DCSUMMARY ---
Discharge Summary
Discharge Data
Date of Admission: 02/12/25
Date of Discharge: 02/15/25
-
Pending Results: No
Hospital Course
Discharging Physician : Dr Guille Bryan
Disposition : SNF rehab
Primary care physician : Dr Christie Galvan
Principal Discharge diagnosis :
Escherichia coli urinary tract infection
Atrial fibrillation with rapid ventricular rate
Elevated troponin
Acute kidney injury
Toxic metabolic encephalopathy
Chronic Discharge diagnosis :
Pulmonary embolism
Critical disease stage IIIa
Essential hypertension
Hypothyroidism
Hospital Course :
Patient is 84-year-old female with above-mentioned past medical history was brought to ER for altered mental state. Patient was diagnosed for urinary tract infection 2 weeks back and was placed on oral antibiotics. Patient continued to have
symptoms of dysuria/urgency. The patient was brought in as daughter found patient confused. In ER patient was noted to be in SVT with heart rate in 180s. Patient was started on Cardizem drip and was admitted for further care. Patient had
resolution of SVT with Cardizem drip and was transition back to home regimen of Toprol. Patient was on Coumadin for anticoagulation preadmission which was switched to Xarelto after discussion with family. Patient also was noted to having ongoing
urinary tract infection and required IV antibiotic course. CT abdomen pelvis was done which ruled out any complicating factors. Urine culture grew E. coli which was sensitive to cephalosporin, patient was discharged on oral cephalosporin course.
Associated with this patient had some acute kidney injury which improved post IV hydration. Patient confusion was also resolved with treatment of infection. CT head/MRI brain was done as part of workup and did not show any other abnormality. Post
stabilization patient was discharged to senior care facility for rehab.
Important imaging findings :
None
Procedure findings :
None
Discharge Plan
-
Patient Disposition: Assisted/SNF
Discharge Diagnosis/Procedures: New onset of atrial fibrillation
Urinary tract infection
Dementia.
Old CVA.
Ambulatory dysfunction
Condition: Good
Diet: Regular
Activity: As tolerated
Driving Restrictions: No driving
Bathing Restrictions: OK to Shower
Activity Restrictions/Additional Instructions:
Take Tab Omnicef for 3 more days
Referrals:
CHRISTIE GALVAN MD [Family Provider, [facility]] - in one week
Prescriptions:
New
acetaminophen 325 mg Tablet
650 mg PO Q6HPRN PRN (Reason: mild pain/ fever>100.5F) Qty: 30 0RF
metoprolol succinate 100 mg Tablet Extended Release 24 Hr
100 mg PO DAILY Qty: 30 0RF
pantoprazole 20 mg Tablet,Delayed Release (Dr/Ec)
20 mg PO DAILY Qty: 30 0RF
levothyroxine 75 mcg Tablet
75 mcg PO DAILY @ 0600 Qty: 30 0RF
duloxetine 30 mg Capsule,Delayed Release(Dr/Ec)
30 mg PO DAILY Qty: 30 0RF
Xarelto 15 mg Tablet
15 mg PO QPM Qty: 30 0RF
cefdinir 300 mg capsule
300 mg PO BID 3 Days Qty: 6 0RF
Discontinued
prednisone 10 MG tablet
10 mg PO .TAPER Qty: 45 0RF
Rx Instructions:
Take 50mg daily x3days, 40mg daily x3days, 30mg daily x3days, 20mg daily x3days, 10mg daily x3days
Discharge Orders:
Discharge Patient (As Directed); Ordered 02/15/25
Ordered By: Guille Bryan
Discharge Date and Time
Discharge Date/Time: 02/15/25 13:18
Print Language: DOMINICAN
== END 2025-02-15 13:18 | DRG 682 ==
LOC: IMU 03:25
PROVIDERS: Emergency Medicine; Internal Medicine; ADMITTING PHYSICIAN Internal Medicine; ATTENDING PHYSICIAN Hospitalist; EMERGENCY PHYSICIAN Student in an Organized Health Care Education/Training Program; FAMILY PHYSICIAN Family Medicine; OTHER PHYSICIAN Internal Medicine
DX: N17.9 Acute kidney failure, unspecified (principal); G92.8 Other toxic encephalopathy; I5A Non-ischemic myocardial injury (non-traumatic); E87.1 Hypo-osmolality and hyponatremia; I47.10 Supraventricular tachycardia, unspecified; N30.90 Cystitis, unspecified without hematuria; I48.91 Unspecified atrial fibrillation; I12.9 Hypertensive chronic kidney disease with stage 1 through stage 4 chronic kidney disease, or unspecified chronic kidney disease; B96.20 Unspecified Escherichia coli [E. coli] as the cause of diseases classified elsewhere; E03.9 Hypothyroidism, unspecified; G89.29 Other chronic pain; F02.80 Dementia in other diseases classified elsewhere, unspecified severity, without behavioral disturbance, psychotic disturbance, mood disturbance, and anxiety; E86.1 Hypovolemia; G30.9 Alzheimer's disease, unspecified; E78.00 Pure hypercholesterolemia, unspecified; N18.31 Chronic kidney disease, stage 3a; D75.89 Other specified diseases of blood and blood-forming organs; Z87.440 Personal history of urinary (tract) infections; Z86.718 Personal history of other venous thrombosis and embolism; Z91.148 Patient's other noncompliance with medication regimen for other reason; Z86.711 Personal history of pulmonary embolism; Z86.73 Personal history of transient ischemic attack (TIA), and cerebral infarction without residual deficits; Z79.01 Long term (current) use of anticoagulants
CPT/HCPCS: 70450; 70553; 74176; 80048; 80053; 80061; 81003; 81015; 82607; 83735; 83880; 84443; 84484; 85025; 85027; 85610; 87086; 87088; 87186; 93005; 93306; 93970; 96365; 96366; 96375; 97163; 97167; 97530; 99291; A9575; J0153

== ENCOUNTER → 2025-02-19 11:18 | Outpatient (REF) | payer OTHER, MEDICARE, SELFPAY ==
[2025-02-19 11:38] LABS: Hematocrit 33.0 % (37.0-47.0); Hemoglobin 10.9 g/dL (12.0-16.0); Mean Corp Hgb Conc. 33.0 g/dL (33.0-37.0); Mean Corpuscular Volume 104.1 fL (81.0-99.0); Platelet Count 442 10^3/uL (130-400); Red Cell Dist. Width 12.9 % (11.5-14.5)
[2025-02-19 12:07] LABS: Blood Urea Nitrogen 25 mg/dl (7-17); Calcium 9.5 mg/dl (8.4-10.2); Carbon Dioxide 26 mmol/L (22-30); Chloride 110 mmol/L (98-107); Glucose 88 mg/dl (70-99); Potassium 4.8 mmol/L (3.5-5.1); Sodium 139 mmol/L (135-145); eGFR 40.80
== END ==
LOC: OLABP 11:18
PROVIDERS: ATTENDING PHYSICIAN Family Medicine
DX: R26.89 Other abnormalities of gait and mobility (principal); I48.0 Paroxysmal atrial fibrillation; N39.0 Urinary tract infection, site not specified; F03.90 Unspecified dementia, unspecified severity, without behavioral disturbance, psychotic disturbance, mood disturbance, and anxiety; I63.89 Other cerebral infarction
CPT/HCPCS: 36415; 80048; 85027

== ENCOUNTER → 2025-03-14 17:06 | Outpatient (REF) | payer MEDICARE, OTHER, SELFPAY ==
[2025-03-14 17:41] LABS: Hematocrit 39.2 % (37.0-47.0); Hemoglobin 12.9 g/dL (12.0-16.0); Mean Corp Hgb Conc. 32.9 g/dL (33.0-37.0); Mean Corpuscular Volume 102.6 fL (81.0-99.0); Nucleated Red Blood Cells % 0 %; Platelet Count 304 10^3/uL (130-400); Red Cell Dist. Width 12.9 % (11.5-14.5)
[2025-03-14 18:00] LABS: Blood Urea Nitrogen 17 mg/dl (7-17); Calcium 10.7 mg/dl (8.4-10.2); Carbon Dioxide 23 mmol/L (22-30); Chloride 109 mmol/L (98-107); Glucose 121 mg/dl (70-99); Potassium 4.7 mmol/L (3.5-5.1); Sodium 140 mmol/L (135-145); eGFR 40.80
== END ==
LOC: REG 17:06
PROVIDERS: FAMILY PHYSICIAN Family Medicine
DX: R05.2 Subacute cough (principal); Z68.27 Body mass index [BMI] 27.0-27.9, adult; R05.1 Acute cough
CPT/HCPCS: 36415; 71046; 80048; 85025

== ENCOUNTER 2025-07-08 04:38 | Observation (INO) | payer MEDICARE, OTHER, SELFPAY ==
[2025-07-08] VITALS (11 sets, daily range): BP systolic 107–167; BP diastolic 61–96; PULSE 81–83; O2SAT 96
[2025-07-08] MEDS: DUONEB 3 ML INH (01:53)
[2025-07-08] MEDS: TYLENOL 1000 MG PO (01:54)
[2025-07-08] MEDS: NSS 1000 IV ×2 (01:54→06:08)
[2025-07-08 01:58] LABS: Hematocrit 39.8 % (37.0-47.0); Hemoglobin 12.9 g/dL (12.0-16.0); Mean Corp Hgb Conc. 32.4 g/dL (33.0-37.0); Mean Corpuscular Volume 100.8 fL (81.0-99.0); Nucleated Red Blood Cells % 0 %; Platelet Count 261 10^3/uL (130-400); Red Cell Dist. Width 13.1 % (11.5-14.5)
[2025-07-08 02:11] LABS: COVID-19 Antigen Negative (Negative)
[2025-07-08 02:43] LABS: ALT (SGPT) < 10 U/L (0-35); AST (SGOT) 19 U/L (14-36); Albumin 4.0 g/dl (3.5-5.0); Alkaline Phosphatase 89 U/L (38-126); Blood Urea Nitrogen 21 mg/dl (7-17); Calcium 9.7 mg/dl (8.4-10.2); Carbon Dioxide 23 mmol/L (22-30); Chloride 107 mmol/L (98-107); Glucose 122 mg/dl (70-99); Potassium 4.4 mmol/L (3.5-5.1); Sodium 136 mmol/L (135-145); Total Protein 6.9 g/dl (6.3-8.2); eGFR 44.64
--- NOTE | 2025-07-08 02:55 | ED.GENMED ---
History of Present Illness
General
Chief Complaint: Fever
Source: patient, family (Daughter at bedside) and previous hospital records (Hospitalization January of this year for UTI, new onset A-fib with rapid ventricular response, toxic metabolic encephalopathy.)
Exam Limitations: dementia (Mildly poor historian related to timing of recent events.)
Time Seen by Provider: 07/08/25 01:21
Nursing documentation reviewed up to this point in time: agreed with
History of Present Illness
History of Present Illness:
The patient is an 85-year-old female, who resides at home with her daughter, presenting with fever, persistent cough, headache, and pain in the sinus region. The onset of symptoms began two days ago, with the patient describing chills and body aches
suggestive of fevers. The patient reports progressive coughing, and there is mention of a 'stuffy nose' with associated sinus discomfort. A family member notes that the patient has felt like she has a cold. Additionally, a wound on the patients hand
has been persistent for a long duration without healing, possibly exacerbated by underlying arthritis. There is no recent exposure to sick contacts as the patient stays mostly at home. The patient was last evaluated in a medical setting
approximately two weeks ago, but it was unrelated to the current symptoms, and no medications were specifically prescribed at that time except [id number] remedies.
Prior records reviewed.
Patient hospitalized January of this year with UTI symptoms persistent for at least 2 weeks prior to that hospitalization. Acute confusion and new onset A-fib with rapid ventricular response. Had been maintained on Coumadin with remote history of
DVT/PE. A-fib converted spontaneously with medications. Patient has history of mild dementia and history of sporadic compliance with medications. Coumadin was discontinued and transitioned to Xarelto which he continues.
Patient resides with one of her daughters who apparently works full-time and is out of the house for most of the day Monday through Monday. There is a agricultural services director who comes to the house from 1 to 3 PM Monday through Monday. Patient is currently
staying with her other daughter who has brought her to the ED due to acute URI symptoms. Current daughter admits that there is ongoing concern that patient is sporadically compliant with her medications. Patient apparently decides what she wants
to take on a daily basis.
There has been no recent falls.
Mildly decreased appetite over the past day or 2 but no vomiting. She did note mild nausea and route to the hospital but this is a new symptom.
Past History
Past History
ED Past Medical History: Arrthythmia (New onset A-fib with rapid ventricular response January 2025), HTN, Renal failure (Chronic kidney disease stage III), Hypothyroidism, Psychiatric (Dementia), Other (cervical/lumbar DDD, DVT/PE) and Other (UTI,
chronic pain syndrome)
ED Past Surgical History: Orthopedic
Social History
Tobacco: Non-smoker
Alcohol: None
Personal:
Living: with family
Family History
Family History: Other (Noncontributory)
Phy Exam
Physical Exam
Physical Exam:
GENERAL: 85-year-old woman appears her stated age. Awake and alert, currently oriented x 3 however struggles with timeline of most recent events over the past few days. Frequent harsh nonproductive cough is noted. Mild breathlessness when talking
in full sentences. Daughter is accompanying.
EYE: pupils equal and reactive. Mild lower lid injection bilaterally. Anicteric
NECK: Supple, nontender, no meningismus, no significant adenopathy.
ENT: posterior pharynx is without injection, mild clear to pearly postnasal drip is noted, oral mucosa is mildly dry. TM clear b/l, nares have mildly boggy turbinates with scant clear rhinorrhea.
CARDIAC: Regular rhythm, mildly tachycardic. no murmur.
LUNGS: Mild tachypnea with frequent harsh nonproductive cough. Scant, scattered end expiratory wheezing bilaterally. No rales or rhonchi.
ABDOMEN: Soft, nondistended, without focal tenderness, no r/g, no cvat. normoactive BS.
NEUROLOGICAL: Alert and oriented x3, no focal neuro deficits.
SKIN: Moderately hot to touch and dry, normal color, no rash. There is a bilobed superficial ulcer left dorsal proximal thumb as well as a smaller ulcerated lesion left lateral wrist. No drainage, no soft tissue swelling nor surrounding erythema.
These ulcerations are exquisitely tender to touch. According to daughter these ulcerations have been present for quite some time, perhaps months or longer.
MUSCULOSKELETAL: No C/C/E. peripheral pulses are full and equal b/l. Moderate tenderness to superficial ulcerated lesions left thumb and left lateral wrist, otherwise extremities are nontender.
PSYCH: Normal and appropriate interaction.
Sepsis
Sepsis Screening
Sepsis Assessment: Sepsis Ruled Out
Sepsis Screen
Sepsis Screen: Sepsis Ruled Out
Date: 07/08/25
Time: 03:00
Course
Orders/Labs/Results
Orders:
Orders
07/08/25 01:23
Urinalysis Reflex To Culture Urgent
07/08/25 01:25
Electrocardiogram (*1) Urgent
Reason for Study: Fatigue / Weakness
EKG- Treatment ONCE
07/08/25 01:43
Acetaminophen [Tylenol] 1,000 mg PO NOW STA
07/08/25 01:44
COVID-19 Antigen Urgent
Source: Nasal Swab
Complete Blood Count/With Diff Urgent
Lactic Acid Urgent
Blood Culture Q30M
KITTY Source: Blood/Venous
Specimen Description:
Blood Culture Q30M
KITTY Source: Blood/Venous
Specimen Description:
Influenza A+B Rapid Molecular Urgent
KITTY Source: Nasal Swab
Specimen Description:
Ipratropium/Albuterol Sulfate [Duoneb] 3 ml INH R NOW STA
07/08/25 01:45
0.9% Sodium Chloride 1000 ml [Nss] 1,000 ml IV 500 mls/hr
CR Chest - 2 Views Urgent
Comment:
Reason For Exam: cough, fever
07/08/25 02:20
Comprehensive Metabolic Panel Urgent
Comment: REDRAW
07/08/25 02:53
Oseltamivir Phosphate [Tamiflu] 30 mg PO NOW STA
07/08/25 04:08
Admit/Transfer Patient As Directed
Co-Sign Provider:
Level of Care: Observation services
Assign to:: Telemetry
Physician / Group: Christopher
Diagnosis: Influenza
Reason for Telemetry: Arrhythmia
Date to Stop Telemetry: 07/11/25
Time to Stop Telemetry: 11:00
PRN Pain Medication Management As Directed
May give lesser potent ordered pain med per pt: Yes
preference::
Protocol:: Medication orders for pain may be administered in a
manner that supports deferring to patient preference
when the pt is:
- Requesting an ordered lesser potent pain medication.
Least to most potent pain medications are defined
as: acetaminophen < NSAID < tramadol < opioids
(morphine, oxycodone, hydromorphone).
- Requesting a lesser dose of the same medication IF
ORDERED.
- Requesting a less intrusive route of administration
if both routes are prescribed by the provider (PO <
IV).
07/08/25 04:25
Code Status As Directed
Resuscitation Status: Full Code
07/08/25 05:30
0.9% Sodium Chloride 1000 ml [Nss] 1,000 ml IV 100 mls/hr
Acetaminophen [Tylenol] 650 mg PO Q4HPRN PRN
Albuterol [ProAIR HFA INHALER] 2 puff INH R Q4HPRN PRN
07/08/25 05:30
Activity As Directed
Activity Level: Ambulate
With Assistance
I/O [Intake/ Output] As Directed
Frequency: Per unit guidelines
Precautions As Directed
Type of Precautions: Droplet
Vital Signs As Directed
Frequency: Per unit guidelines
Oxygen Therapy [O2 Therapy] [RESP] Routine
Titrate/Wean O2 to maintain O2 sat greater than (%): 94
Ot Eval And Treat Routine
PT Consult [Pt Eval And Treat] Routine
Activity Level: Ambulate
With Assistance
07/08/25 Breakfast
Regular
At Your Request: Full Participation
Basic Metabolic Panel IN AM
Complete Blood Count/No Diff IN AM
Levothyroxine [Synthroid] 75 mcg PO DAILY @ 0600
07/08/25 08:00
Donepezil HCl [Aricept] 10 mg PO DAILY
Duloxetine Delayed Release [Cymbalta Delayed Release] 30 mg PO DAILY
Metoprolol Xl [Toprol Xl] 100 mg PO DAILY
Oseltamivir Phosphate [Tamiflu] 30 mg PO BID
Pantoprazole [Protonix] 20 mg PO DAILY
07/08/25 18:00
Rivaroxaban [Xarelto] 15 mg PO QPM
07/11/25 11:00
DC Protocol for Telemetry ONCE
Abnormal Lab Results
07/08/25 07/08/25
01:44 02:20
RBC 3.95 L 10^6/uL
(4.20-5.40)
MCV 100.8 H fL
(81.0-99.0)
MCH 32.7 H pg
(27.0-31.0)
MCHC 32.4 L g/dL
(33.0-37.0)
Absolute Lymphs (auto) 0.5 L 10^3/uL
(1.2-3.4)
Neutrophils % 84.3 H %
(42.2-75.2)
Lymphocytes % 6.9 L %
(20.5-51.1)
BUN 21 H mg/dl
(7-17)
Creatinine 1.2 H mg/dL
(0.6-1.0)
Glucose 122 H mg/dl
(70-99)
07/08/25 01:44
07/08/25 02:20
Vital Signs
Initial and Last Documented VS:
Initial Vital Signs
Temp Pulse Resp BP Pulse Ox
99.5 F 132 28 150/96 95
07/08/25 00:07 07/08/25 00:07 07/08/25 00:07 07/08/25 00:07 07/08/25 00:07
Last Documented Vital Signs
Temp Pulse Resp BP Pulse Ox
99.4 F 103 20 126/68 92
07/08/25 02:09 07/08/25 05:15 07/08/25 05:15 07/08/25 05:00 07/08/25 05:15
MDM/Problems Addressed
Differential Diagnosis Includes:
The Differential Diagnosis includes, in no particular order and is not limited to:
1. Upper Respiratory Infection
2. Viral Sinusitis
3. Chronic Rhinosinusitis
4. Herpetic Beatriz
5. Bacterial Skin Infection
6. Allergic Rhinitis
7. Impaired Healing Due to Diabetes (if applicable)
8. Community-acquired Pneumonia
9. Chronic Obstructive Pulmonary Disease Exacerbation
10. Dental Abscess
MDM/Problems Addressed:
Acute URI with acute febrile illness. Although oral temperature reportedly 99.5 �F. I suspect a much higher temperature as clinically skin is moderately hot to touch.
Concern for pneumonia, COVID URI, acute influenza, viral bronchitis.
Appears moderately fatigued and although pulse ox 95% on room air, moderate breathlessness when speaking.
Will give Tylenol for fever, initiate IV fluids will check labs and chest x-ray.
Monitor shows sinus tachycardia with occasional ectopy. Concern for potential intermittent atrial fibrillation on personnel monitor. Will check EKG and continue to monitor.
Chronic conditions affecting care: HTN, Arrhythmia, Neurological disorder and Kidney disease
*Radiology
Radiology exam reviewed: preliminary read by ED provider (Moderately rotated otherwise unremarkable. Clear lung mcdonald.)
*Pulse Oximetry
SaO2: 95
Oxygen Mode of Delivery: Room air
Patient hypoxic: no
*EKG
Interpreted by ED Provider?: Yes
Comparison EKG: no changes (Unchanged from previous February 12, 2025 save for heart rate has increased from 94 to now 104. PACs are new.)
Rate: tachycardiac
Rhythm: sinus and PAC's
[place]: normal axis
Interval: normal interval
QRS Pattern: normal QRS
Ischemia: no ischemia
*Landing Man Interpretation
Rate: tachycardiac
Interpretation: abnormal
Rhythm: sinus
*Critical Care Note
Total Time (30-74mins, 75-104mins- exclusive of procedures): Not Applicable
Update Note
Update Note:
Patient is positive for influenza A. Likely source for her URI.
Due to acute febrile illness, URI patient is markedly deconditioned, generalized weakness, as well as landing to exacerbation of her chronic dementia.
She is noted to have intermittent nausea, again I suspect related to acute influenza/URI but concern for inability to maintain adequate oral hydration and due to generalized weakness/fatigue she is at significant risk for falls and significant
debility thus will require acute hospitalization.
Will initiate Tamiflu at renal dosing, 30 mg.
Cough has improved after nebulizer treatment.
Will continue IV fluids.
Will admit to hospitalist service.
ED Attending Note
-
Portions of this chart may have been created with voice recognition software.� Occasional wrong word or��sound alike� substitutions may have occurred due to the inherent limitations of voice recognition software.
Discharge Plan
Departure
Patient Disposition: Admit
Date of Disposition: 07/08/25
Time of Disposition: 03:00
Admit to: Med/Surg
Admit to doctor: Christopher
Presentation/result/management discussed w/ accepting MD/DO: Hospitalist
Condition: Fair
Covid-19: Negative COVID-19
Discharge Problem:
Influenzal acute upper respiratory infection, Acute respiratory distress, Toxic metabolic encephalopathy
Interventions
Interventions:
*Risk Screen - Suicide Last Done: 07/08/25 00:07
*General Assessment Last Done: 07/08/25 02:09
*Neglect/Abuse Screening Last Done: 07/08/25 00:07
*ED COVID-19 Vaccine History Last Done: 07/08/25 02:37
*ED Influenza Vaccine History Last Done: 07/08/25 02:37
ED- Neurological Assessment Last Done: 07/08/25 02:40
ED- Pulmonary Assessment Last Done: 07/08/25 02:40
ED-Skin Assessment Last Done: 07/08/25 02:40
[2025-07-08] MEDS: TAMIFLU 30 MG PO ×2 (03:23→07:37)
--- NOTE | 2025-07-08 04:31 | HPS.HSE ---
Family Physician
-
Family Physician: IRENE MAGALLANES MD
Chief Complaint
-
Fever, cough
History of Present Illness
Patient is an 85y F with PMH significant for A-Fib, hypertension, hypothyroidism and prior DVT who presents to ED complaining of cough, fever, weakness and malaise. Patient states that she started with runny nose and some sinus issues about a
week ago. Has had fever / cough and some SOB for the past 2 days. She is not sure if she had her seasonal influenza vaccine yet this year. She denies any chest pain. No GI or complaints.
Medical History
Past Medical History
Past Medical History: Reports Other
Additional Past Medical History:
Hypertension
Paroxysmal Atrial Fibrillation
SVT
CKD III
CVA (by imaging)
History of PE
Hypothyroidism
Senile Dementia
Past Surgical History: Reports Other
Additional Past Surgical History:
Bilateral TKA
Mohs Surgery
Cataracts
Social History
Tobacco: Non-smoker
Alcohol: None
Drug: None
Family History
Family History: Not pertinent
Allergies / Home Medications
Allergies reflects when Allergies were last updated in [facility].
Home Medications with original date entered in [facility]
Allergy/Medication List:
Allergies
Allergy/AdvReac Type Severity Reaction Status Date / Time
acetaminophen (From Percocet) Allergy Unknown Verified 07/08/25 00:09
amoxicillin Allergy Unknown Verified 07/08/25 00:09
cephalexin Allergy Unknown Verified 07/08/25 00:09
codeine phosphate (From Allergy Unknown Verified 07/08/25 00:09
Tylenol-Codeine #3)
hydrocodone bitartrate (From Allergy Unknown Verified 07/08/25 00:09
Vicodin)
latex Allergy Unknown Verified 07/08/25 00:09
morphine Allergy Unknown Verified 07/08/25 00:09
nitrofurantoin Allergy Unknown Verified 07/08/25 00:09
oxycodone HCl (From Percocet) Allergy Unknown Verified 07/08/25 00:09
sulfamethoxazole (From Allergy Unknown Verified 07/08/25 00:09
Bactrim)
tramadol Allergy Unknown Verified 07/08/25 00:09
trimethoprim (From Bactrim) Allergy Unknown Verified 07/08/25 00:09
Home Medications
acetaminophen 325 mg tablet 650 mg (2 x 325 mg) PO Q6HPRN PRN mild pain/ fever>100.5F #30 tabs 02/14/25
duloxetine 30 mg capsule,delayed release 30 mg PO DAILY #30 caps 02/14/25
levothyroxine 75 mcg tablet 75 mcg PO DAILY @ 0600 #30 tabs 02/14/25
metoprolol succinate 100 mg tablet,extended release 24 hr 100 mg PO DAILY #30 tabs 02/14/25
pantoprazole 20 mg tablet,delayed release 20 mg PO DAILY #30 tabs 02/14/25
rivaroxaban 15 mg tablet (Xarelto) 15 mg PO QPM #30 tabs 02/14/25
donepezil 10 mg tablet 10 mg PO DAILY 07/08/25
Review of Systems
-
History Source: Patient
A 12 point ROS was completed and negative except as noted: Yes
Constitutional: Reports Fever and Fatigue; Denies Chills
EENT: Reports Sore Throat and Runny Nose
Respiratory: Reports Cough and Trouble Breathing
Cardiac: Denies Chest Pain or Palpitations
Abdomen/GI: Denies Abdominal Pain, Nausea, Vomiting or Diarrhea
: Denies Dysuria or Frequency
Musculoskeletal: Denies Joint Pain or Edema
Neurological: Denies Dizzy or Headache
Physical Exam
Vital Signs
Vital Signs
Temp Pulse Resp BP Pulse Ox
99.4 F 115 17 167/78 95
07/08/25 02:09 07/08/25 01:45 07/08/25 01:45 07/08/25 01:00 07/08/25 02:58
Physical Exam
General: Other (Pleasant 85y F in no acute distress.)
HEENT: Moist mucous membranes, PERRLA and Other (Inflamed conjunctiva bilaterally.)
Respiratory: Other (Coarse breath sounds R > L. No wheezing.)
Cardiac: S1/S2 and Tachycardia; No Murmur
GI: Soft, Non Tender, Non Distended and Normal Bowel Sounds
Musculoskeletal: No Clubbing, No Cyanosis and No Edema
Neuro: Awake and Alert
Laboratory Results
-
07/08/25 01:44
07/08/25 02:20
Laboratory Results
Lactic Acid 1.1 mmol/L (0.7-2.0) 07/08/25 01:44
Total Bilirubin 0.7 mg/dl (0.2-1.3) 07/08/25 02:20
AST 19 U/L (14-36) 07/08/25 02:20
ALT < 10 U/L (0-35) 07/08/25 02:20
Alkaline Phosphatase 89 U/L (38-126) 07/08/25 02:20
Impression/Plan
-
A/P: Patient is an 85y F with PMH significant for hypertension, hypothyroidism and CKD who presents to ED for evaluation of cough, fever and malaise.
Influenza A
- Observe overnight for further evaluation and treatment.
- Fever / cough x 2 days - begin Tamiflu.
- Albuterol MDI PRN.
- O2 support if needed.
- Follow proper precautions.
- Follow for clinical improvement.
SVT
Paroxysmal Atrial Fibrillation
- Sinus tach / SVT in the ED.
- Continue usual home metoprolol and monitor for changes.
- Continue Xarelto for stroke risk reduction.
Benign Hypertension
- Stable. Continue metoprolol.
CKD III
- Stable. Renal function is at / near known baseline.
- Renally dose Tamiflu.
Hypothyroidism
- Continue T4 replacement.
Senile Dementia
- Continue Aricept.
- Monitor for acute agitation / delirium during hospital stay.
History of PE
DVT Prophylaxis
- Continue Xarelto
Code Status: Full
[2025-07-08 06:16] LABS: Hematocrit 33.4 % (37.0-47.0); Hemoglobin 11.2 g/dL (12.0-16.0); Mean Corp Hgb Conc. 33.5 g/dL (33.0-37.0); Mean Corpuscular Volume 98.5 fL (81.0-99.0); Platelet Count 243 10^3/uL (130-400); Red Cell Dist. Width 13.1 % (11.5-14.5)
[2025-07-08 06:39] LABS: Blood Urea Nitrogen 20 mg/dl (7-17); Calcium 9.1 mg/dl (8.4-10.2); Carbon Dioxide 23 mmol/L (22-30); Chloride 109 mmol/L (98-107); Glucose 119 mg/dl (70-99); Potassium 4.0 mmol/L (3.5-5.1); Sodium 136 mmol/L (135-145); eGFR 40.55
[2025-07-08] MEDS: ARICEPT 10 MG PO (07:36)
[2025-07-08] MEDS: PROTONIX 20 MG PO (07:36)
[2025-07-08] MEDS: SYNTHROID 75 MCG PO (07:36)
[2025-07-08] MEDS: TOPROL XL 100 MG PO (07:36)
--- NOTE | 2025-07-08 08:40 | W.PN.HOSP.TC ---
Today's Communication/Plan
-
Discharge
Assessment / Plan
Assessment / Plan
Impression:
Patient is an 85y F with PMH significant for A-Fib, hypertension, hypothyroidism and prior DVT who presents to ED complaining of cough, fever, weakness and malaise. Patient states that she started with runny nose and some sinus issues about a
week ago. Has had fever / cough and some SOB for the past 2 days. She is not sure if she had her seasonal influenza vaccine yet this year. She denies any chest pain. No GI or complaints.
Further fever, will be discharged on Tamiflu
Assessment/plan:
Influenza A
Admitted overnight under observation and further evaluation.
Fever and cough for 2 days; initiated on oseltamivir (Tamiflu).
Albuterol MDI PRN for bronchospasm.
Oxygen support if needed.
Maintain appropriate isolation precautions.
Monitor for clinical improvement.
07/07
No further fever, will be discharged on Tamiflu
Supraventricular Tachycardia (SVT) / Paroxysmal Atrial Fibrillation
Sinus tachycardia/SVT noted in ED.
Continue home metoprolol; monitor for rhythm changes.
Continue Xarelto for stroke risk reduction.
Benign Hypertension
Stable; continue metoprolol.
Mild normocytic anemia
No sign of bleed
Continue to
Chronic Kidney Disease (Stage IIIb)
Stable; renal function near baseline.
Renally dose Tamiflu.
Hypothyroidism
Continue levothyroxine (T4 replacement).
Senile Dementia
Continue donepezil (Aricept).
Monitor for acute agitation or delirium during hospitalization.
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
Continue Xarelto.
CODE STATUS: Full code
DVT prophylaxis: Xarelto
Diet: Regular diet
Family communication: Discussed daughter in the phone
Disposition: Discharge home
Total time spent on today's encounter was 55 minutes which included time spent in counseling the patient/family regarding diagnosis and treatment plan as listed above, goals of care, and symptom management. Case was discussed with nursing staff,
specialists, and care coordinators/case management. All labs and imaging personally reviewed by me. Remainder the time spent in detailed review of previous records, lab data, imaging, and other medical provider documentation.
Anticipated Discharge: Today
Subjective/Interval History
-
Date of Service: July 08, 2025
Patient is confused and cannot provide interval history
Objective Data
-
Labs:
Laboratory Results
07/08/25 07/08/25 07/08/25
01:44 02:20 06:06
WBC 7.1 5.1
Hgb 12.9 11.2 L
Hct 39.8 33.4 L
Plt Count 261 243
Sodium Cancelled 136 136
Potassium Cancelled 4.4 4.0
Chloride Cancelled 107 109 H
Carbon Dioxide Cancelled 23 23
BUN Cancelled 21 H 20 H
Creatinine Cancelled 1.2 H 1.3 H
Glucose Cancelled 122 H 119 H
Calcium Cancelled 9.7 9.1
Total Bilirubin Cancelled 0.7
AST Cancelled 19
ALT Cancelled < 10
Alkaline Phosphatase Cancelled 89
Vital Signs:
Vital Signs
Temp Pulse Resp BP Pulse Ox
98.6 F 86 19 138/63 92
07/08/25 07:54 07/08/25 06:15 07/08/25 06:15 07/08/25 06:00 07/08/25 05:15
Physical Exam
-
General: Well Developed, Well Nourished and No Apparent Distress
HEENT: Normocephalic, Atraumatic, Moist Mucous Membranes, No Ptosis and Nose Appears Normal; Negative PERRLA (Bilateral rib on lower eyelids)
Respiratory: Clear to Auscultation and Non Labored Respirations
Cardiac: Regular Rhythm and S1/S2
Breast: Deferred by me
GI: Soft, Nontender, Nondistended and Normal Bowel Sounds
Genito-urinary: No Costovertebral Tender
Musculoskeletal: No Clubbing, No Cyanosis and No Edema
Skin: Warm
Neuro: Awake
Psych: Calm and Confused
Data Reviewed
-
Diagnostic Radiology: Image personally visualized and interpreted and Report Reviewed by me
CT Scan: Image personally visualized and interpreted and Report Reviewed by me
Ultrasound: Image personally visualized and interpreted and Report Reviewed by me
MRI: Image personally visualized and interpreted and Report Reviewed by me
Medical Tests (Nuc Med, Echo etc): Image personally visualized and interpreted and Report Reviewed by me
Labs: Labs Reviewed by me
Old Records: Reviewed
[2025-07-08] MEDS: CYMBALTA DELAYED RELEASE 30 MG PO (09:22)
--- NOTE | 2025-07-08 10:26 | CM ---
chart reviewed Spoke with patient at bedside
Spoke with dtr Katja on the phone
XAVIER reviewed with dtr Katja
Lives with dtr Gloria [address] in [facility] [address]
1st floor set up
hx of dementia
Needs assistance with ADLs
they have a private aide coming daily for a cuople of hours a day
DME RW
PCP Dr. Christie Galvan in [facility]
Pharmacy [facility] pharmacy in [facility]
hx of VN does not remember name
hx f SNF SNF in [facility]
DCP is home with services if needed
CM will follow up with any dcp needs
--- NOTE | 2025-07-08 12:22 | W.DCSUMMARY ---
Discharge Summary
Discharge Data
Date of Admission: 07/08/25
Date of Discharge: 07/08/25
Total time spent discharging patient (in min): 40
-
Pending Results: No
Hospital Course
Hospital course
Patient is an 85y F with PMH significant for A-Fib, hypertension, hypothyroidism and prior DVT who presents to ED complaining of cough, fever, weakness and malaise. Patient states that she started with runny nose and some sinus issues about a
week ago. Has had fever / cough and some SOB for the past 2 days. She is not sure if she had her seasonal influenza vaccine yet this year. She denies any chest pain. No GI or complaints.
Further fever, will be discharged on Tamiflu
During hospitalization patient was treated from the following
Influenza A
Admitted overnight under observation and further evaluation.
Fever and cough for 2 days; initiated on oseltamivir (Tamiflu).
Albuterol MDI PRN for bronchospasm.
Oxygen support if needed.
Maintain appropriate isolation precautions.
Monitor for clinical improvement.
07/07
No further fever, will be discharged on Tamiflu
Supraventricular Tachycardia (SVT) / Paroxysmal Atrial Fibrillation
Sinus tachycardia/SVT noted in ED.
Continue home metoprolol; monitor for rhythm changes.
Continue Xarelto for stroke risk reduction.
Benign Hypertension
Stable; continue metoprolol.
Mild normocytic anemia
No sign of bleed
Continue to
Chronic Kidney Disease (Stage IIIb)
Stable; renal function near baseline.
Renally dose Tamiflu.
Hypothyroidism
Continue levothyroxine (T4 replacement).
Senile Dementia
Continue donepezil (Aricept).
Monitor for acute agitation or delirium during hospitalization.
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
Continue Xarelto.
CODE STATUS: Full code
DVT prophylaxis: Xarelto
Diet: Regular diet
Family communication: Discussed daughter in the phone
Disposition: Discharge home
Total time spent on today's encounter was 40 minutes which included time spent in counseling the patient/family regarding diagnosis and treatment plan as listed above, goals of care, and symptom management. Case was discussed with nursing staff,
specialists, and care coordinators/case management. All labs and imaging personally reviewed by me. Remainder the time spent in detailed review of previous records, lab data, imaging, and other medical provider documentation.
Anticipated Discharge: Today
Discharge Plan
-
Patient Disposition: Home with Home Care
Discharge Diagnosis/Procedures: Influenza A
Supraventricular Tachycardia (SVT) / Paroxysmal Atrial Fibrillation
Chronic Kidney Disease (Stage IIIb)
Diet: As tolerated and Regular
Other Services: VN, PT and OT
Referrals:
IRENE MAGALLANES MD [Family Provider, Family Practice]
Prescriptions:
New
oseltamivir 30 mg Capsule
30 mg PO BID 5 Days Qty: 10 0RF
Continued
acetaminophen 325 mg Tablet
650 mg PO Q6HPRN PRN (Reason: mild pain/ fever>100.5F) Qty: 30 0RF
metoprolol succinate 100 mg Tablet Extended Release 24 Hr
100 mg PO DAILY Qty: 30 0RF
pantoprazole 20 mg Tablet,Delayed Release (Dr/Ec)
20 mg PO DAILY Qty: 30 0RF
levothyroxine 75 mcg Tablet
75 mcg PO DAILY @ 0600 Qty: 30 0RF
duloxetine 30 mg Capsule,Delayed Release(Dr/Ec)
30 mg PO DAILY Qty: 30 0RF
Xarelto 15 mg Tablet
15 mg PO QPM Qty: 30 0RF
donepezil 10 mg Tablet
10 mg PO DAILY
Discharge Orders:
Discharge Patient (As Directed); Ordered 07/08/25
Ordered By: Binh Gutierres
Discharge Date and Time
Print Language: CYPRIOT
--- NOTE | 2025-07-08 12:33 | CM ---
Discussed with Dr. Purcell
DC today to home per dtr and doctor
Spoke with dtr Katja
Agreeable with dischrge today
Asked this CM to set up HHC for RN and PT via [facility]
Patient is known to the agency
CM sent a referral via [facility]
Dtr to pick patient up around 5 pm
ED nurse and team made aware
--- NOTE | 2025-07-08 12:49 | CM ---
Left message with intake nurse at [facility] for [facility] RN/PT referral [phone]. Provided CM contact info
--- NOTE | 2025-07-08 13:47 | CM ---
Received call from radio program director from [facility] [phone]
Declined referral due to staffing
LVM with dtr Gloria
LVM with dtr Katja
[2025-07-08] MEDS: TYLENOL 650 MG PO (14:03)
== END 2025-07-08 17:00 | disposition home health service (06) ==
LOC: ED 04:38
PROVIDERS: ADMITTING PHYSICIAN Hospitalist; ATTENDING PHYSICIAN General Practice; EMERGENCY PHYSICIAN Emergency Medicine; FAMILY PHYSICIAN Family Medicine
DX: J10.1 Influenza due to other identified influenza virus with other respiratory manifestations (principal); R50.9 Fever, unspecified; R05.3 Chronic cough; R51.9 Headache, unspecified; I48.0 Paroxysmal atrial fibrillation; R11.0 Nausea; F03.A0 Unspecified dementia, mild, without behavioral disturbance, psychotic disturbance, mood disturbance, and anxiety; I12.9 Hypertensive chronic kidney disease with stage 1 through stage 4 chronic kidney disease, or unspecified chronic kidney disease; N18.32 Chronic kidney disease, stage 3b; G89.4 Chronic pain syndrome; E03.9 Hypothyroidism, unspecified; R06.81 Apnea, not elsewhere classified; G92.8 Other toxic encephalopathy; I47.10 Supraventricular tachycardia, unspecified; R06.03 Acute respiratory distress; R53.83 Other fatigue; R53.1 Weakness; I49.1 Atrial premature depolarization; D64.9 Anemia, unspecified; Z79.01 Long term (current) use of anticoagulants; Z86.718 Personal history of other venous thrombosis and embolism; Z86.711 Personal history of pulmonary embolism; Z87.440 Personal history of urinary (tract) infections; Z79.890 Hormone replacement therapy; Z79.899 Other long term (current) drug therapy; Z91.81 History of falling; Z96.653 Presence of artificial knee joint, bilateral; Z88.5 Allergy status to narcotic agent; Z88.0 Allergy status to penicillin; Z88.2 Allergy status to sulfonamides; Z88.6 Allergy status to analgesic agent; Z88.1 Allergy status to other antibiotic agents; Z88.3 Allergy status to other anti-infective agents; Z91.040 Latex allergy status; Z78.9 Other specified health status; Z86.73 Personal history of transient ischemic attack (TIA), and cerebral infarction without residual deficits; Z11.52 Encounter for screening for COVID-19
CPT/HCPCS: 71046; 80048; 80053; 83605; 85025; 85027; 87040; 87502; 87811; 93005; 94640; 96360; 96361; 97162; 97166; 99285; G0378